=== PATIENT | female | born 1965 | race Caucasian/White ===

== ENCOUNTER 2023-09-26 20:35 | Emergency (ER) | payer BC, SELFPAY ==
[2023-09-26 20:38] VITALS: BP 88/66
[2023-09-26 20:42] VITALS: BP 88/66
[2023-09-26 20:56] LABS: % Basophils 0.3 % (0-2); % Eosinophils 0.7 % (0-6); % Immature Granulocytes 0.3 % (0-0.5); % Lymphocytes 21.8 % (20.5-51.1); % Monocytes 5.3 % (1.7-9.3); % Neutrophils 71.6 % (42.2-75.2); Absolute Eosinophils 0.1 10^3/uL (0-0.7); Absolute Monocytes 0.5 10^3/uL (0.1-0.6); Absolute Neutrophils 6.6 10^3/uL (1.4-6.5); Hematocrit 35.7 % (37.0-47.0); Hemoglobin 11.9 g/dL (12.0-16.0); Mean Corp Hgb Conc. 33.3 g/dL (33.0-37.0); Mean Corpuscular Hgb 27.6 pg (27.0-31.0); Mean Corpuscular Volume 82.8 fL (81.0-99.0); Nucleated Red Blood Cells % 0 %; Platelet Count 318 10^3/uL (130-400); Red Blood Cell Count 4.31 10^6/uL (4.20-5.40); Red Cell Dist. Width 12.3 % (11.5-14.5); White Blood Cell Count 9.1 10^3/uL (4.8-10.8)
[2023-09-26 21:00] VITALS: BP 100/62
[2023-09-26 21:09] LABS: ALT (SGPT) 36 U/L (0-35); AST (SGOT) 53 U/L (14-36); Albumin 4.3 g/dl (3.5-5.0); Alkaline Phosphatase 132 U/L (38-126); Blood Urea Nitrogen 18 mg/dl (7-17); Calcium 9.6 mg/dl (8.4-10.2); Carbon Dioxide 23 mmol/L (22-30); Chloride 106 mmol/L (98-107); Glucose 103 mg/dl (70-99); Potassium 3.6 mmol/L (3.5-5.1); Sodium 137 mmol/L (135-145); Total Bilirubin 0.2 mg/dl (0.2-1.3); eGFR > 60.00
[2023-09-26 21:57] VITALS: BP 102/63
[2023-09-26 22:00] VITALS: BP 112/69
[2023-09-26 22:04] VITALS: BP 100/67; BP 102/63; BP 112/69; PULSE 69; PULSE 78
--- NOTE | 2023-09-26 22:33 | ED.GENMED ---
History of Present Illness
General
Chief Complaint: Fainting/Passed Out
Source: patient
Time Seen by Provider: 09/26/23 21:52
Travel History
Have you had any contact with someone who has COVID-19?: No
Do you have any symptoms of coronavirus? Fever > 100 degrees, chills, cough, shortness of breath, sore throat, loss of taste or smell, muscle aches, or headache?: No
History of Present Illness
History of Present Illness:
58-year-old female with no significant past medical history presenting the emergency department via EMS after she had a witnessed syncopal episode while at a restaurant with family and friends after she was playing pickle ball for a few hours and
had just finished eating and had about half of an alcoholic beverage. Prior to passing out patient states she started to feel lightheaded and dizzy and as if she were going to pass out. She states she had a history of similar event about 2 years
ago but no other history of syncope. Patient believes that this was likely related to having played pickle ball in a hot indoor arena. She has no other concerns at this time. EMS did treat patient with a 500 mL bolus of normal saline and she
completed the rest of this bolus on arrival to the ER.
Past History
Past History
ED Past Medical History: None
ED Past Surgical History: None
Social History
Tobacco: Non-smoker
Alcohol: Occasional
Drug: None
Personal:
Living: with family
Employment: Employed
Family History
Family History: Other (Noncontributory)
Review of Systems
Review of Systems
All Other Systems: ROS reviewed and negative except as documented in HPI and ROS
Phy Exam
Physical Exam
Physical Exam:
GENERAL: Alert , in no apparent distress
EYE: conjunctiva clear
NECK: Supple
ENT: o/p clr, mmm.
CARDIAC: Regular rate and rhythm
LUNGS: Clear breath sounds bilaterally, no acute respiratory distress, no wheezes/rales/rhonchi
NEUROLOGICAL: Alert and oriented
SKIN: Warm and dry, skin intact.
MUSCULOSKELETAL: well perfused.
PSYCH: Normal and appropriate interaction.
Scores
Heart Failure Risk
Heart Failure Risk Score: Not Applicable
Heart Score for Chest Pain Patients
STEMI patient?: Not applicable
Withdrawal Assessment of Alcohol
Withdrawal Assessment Completed?: Not applicable
Course
Orders/Labs/Results
Orders:
Orders
09/26/23 20:37
Electrocardiogram (*1) Urgent
Reason for Study: Syncope
EKG- Treatment ONCE
09/26/23 20:49
Complete Blood Count/With Diff Urgent
Comprehensive Metabolic Panel Urgent
Abnormal Lab Results
09/26/23
20:49
Hgb 11.9 L g/dL
(12.0-16.0)
Hct 35.7 L %
(37.0-47.0)
Absolute Neuts (auto) 6.6 H 10^3/uL
(1.4-6.5)
BUN 18 H mg/dl
(7-17)
Glucose 103 H mg/dl
(70-99)
AST 53 H U/L
(14-36)
ALT 36 H U/L
(0-35)
Alkaline Phosphatase 132 H U/L
(38-126)
09/26/23 20:49
09/26/23 20:49
Vital Signs
Initial and Last Documented VS:
Initial Vital Signs
Temp Pulse Resp BP Pulse Ox
97.4 F 64 17 88/66 100
09/26/23 20:38 09/26/23 20:38 09/26/23 20:38 09/26/23 20:38 09/26/23 20:38
Last Documented Vital Signs
Temp Pulse Resp BP Pulse Ox
97.4 F 70 19 112/69 99
09/26/23 20:38 09/26/23 22:30 09/26/23 22:30 09/26/23 22:00 09/26/23 22:30
MDM/Problems Addressed
Differential Diagnosis Includes:
Orthostasis, vasovagal syncope, cardiogenic syncope, seizure
MDM/Problems Addressed:
58-year-old female present emergency department for evaluation following a suspected syncopal episode. On arrival to the emergency department patient was found to be hypotensive. This improved with IV fluids and patient notes at time of my
evaluation she is fully asymptomatic. Labs were sent and largely unremarkable. Orthostatic vital signs were noted. Patient's blood pressure remained labile and she feels well and would like to be discharged home. Advise she increase fluids.
Follow-up with primary care provider. Patient is aware that if syncopes are to recur she may need to follow-up with cardiology for further cardiac evaluation.
*Pulse Oximetry
Patient hypoxic: no
*EKG
Interpreted by ED Provider?: Yes
Comparison EKG: no changes
Heart Rate: 69
Rate: normal
Rhythm: sinus
[place]: normal axis
Ischemia: no ischemia
*[employer] Interpretation
Rate: normal
Rhythm: sinus
*Critical Care Note
Total Time (30-74mins, 75-104mins- exclusive of procedures): Not Applicable
Data Reviewed
Review of Other/Old Records Reveals: Records
ED Attending Note
-
Portions of this chart may have been created with voice recognition software.� Occasional wrong word or��sound alike� substitutions may have occurred due to the inherent limitations of voice recognition software.
Discharge Plan
Departure
Patient Disposition: Home (Routine Discharge)
Date of Disposition: 09/26/23
Time of Disposition: 22:33
Patient with high blood pressure during this ER visit?: No
Discharge Problem:
Orthostasis
Instructions: Syncope (Fainting) (DC)
Interventions
Interventions:
*Risk Screen - Suicide Last Done: 09/26/23 20:38
*General Assessment Last Done: 09/26/23 20:38
*Neglect/Abuse Screening Last Done: 09/26/23 20:38
ED- Fall Risk Assessment Last Done: 09/26/23 22:52
*Nursing Disposition Last Done: 09/26/23 22:52
ED- Cardiac Assessment Last Done: 09/26/23 21:42
ED- Neurological Assessment Last Done: 09/26/23 21:42
Discharge Date and Time
Discharge Date/Time: 09/26/23 22:52
Print Language: ROMANIAN
== END 2023-09-26 22:52 | disposition home or self-care (01) ==
LOC: EMR 20:35
PROVIDERS: Emergency Medicine; EMERGENCY PHYSICIAN Student in an Organized Health Care Education/Training Program; FAMILY PHYSICIAN Family Medicine
DX: I95.1 Orthostatic hypotension (principal)
CPT/HCPCS: 99284; 80053; 85025; 93005